=== PATIENT | female | born 1955 | race Caucasian/White ===

== ENCOUNTER 2018-08-04 16:33 | Emergency (ER) | payer BC ==
[~2018-08-04] VITALS: Ht 170.2 cm; Wt 68.0 kg
[2018-08-04] MEDS: NEOMYCIN-BACITRACIN-POLYM UNITDOSE PKG TOP OINT TOP ONE ×2 (18:31→18:53)
[2018-08-04 18:36] LABS: Urine WBC None Seen /hpf (0 - 5)
[2018-08-04 19:06] VITALS: BP 122/82
[2018-08-04 19:13] LABS: Urine Bacteria NONE SEEN /hpf (None Seen); Urine Blood Negative /uL (Negative); Urine Mucus FEW (None Seen); Urine Specific Gravity 1.006 (1.001-1.035)
[2018-08-04 19:14] LABS: Basophils # (auto) 0.1 uL; Basophils % (auto) 1.1 % (0.0-2.0); Eosinophils # (auto) 0.1 uL; Eosinophils % (auto) 0.6 % (0.0-7.0); Hematocrit 39.9 % (36.0-46.0); Hemoglobin 13.4 g/dL (12.2-16.2); Lymphocytes # (auto) 2.9 uL; Lymphocytes % (auto) 28.1 % (10.0-50.0); Mean Corpuscular Hemoglobin 31.9 pg (28.0-32.0); Mean Corpuscular Hgb Conc. 33.7 g/dL (32.0-36.0); Mean Corpuscular Volume 94.7 fL (80.0-100.0); Monocytes # (auto) 0.7 uL; Monocytes % (auto) 6.5 % (0.0-12.0); Neutrophils # (auto) 6.6 uL; Neutrophils % (auto) 63.7 % (37.0-80.0); Platelet Count (auto) 244 10^3/uL (140-450); Red Blood Cells 4.21 10^6/uL (4.0-5.20); Red Cell Distribution Width 13.8 % (11.8-14.3); White Blood Cell 10.4 10^3/uL (4.4-10.8)
[2018-08-04 19:31] LABS: Alanine Aminotransferase 21 U/L (13-56); Albumin 3.8 g/dL (3.4-5.0); Anion Gap 5 (5-15); Blood Urea Nitrogen 21 mg/dL (7-18); Carbon Dioxide 27 mmol/L (21-32); Chloride 108 mmol/L (98-107); Glucose 94 mg/dL (74-106); Potassium 3.6 mmol/L (3.5-5.1); Sodium 140 mmol/L (136-145)
[2018-08-04 19:36] LABS: Alkaline Phosphatase 90 U/L (45-117); Aspartate Aminotransferase 16 U/L (15-37); Bilirubin, Total 0.3 mg/dL (0.2-1.0); Creatine Kinase IFCC 266 U/L (26-192); GFR African American 77 mL/min; GFR Non-African American 64 mL/min; Total Protein 7.3 g/dL (6.4-8.2)
[2018-08-04 19:38] LABS: BUN/Creatinine Ratio 22.1
[2018-08-04] MEDS ORDERED: methylPREDNISolone SOD SUCC 125 MG/2 ML VL IV ONE (20:15)
[2018-08-04] MEDS ORDERED: SODIUM CHLORIDE 0.9% 1,000 ML IV ONE (20:15)
== END 2018-08-04 19:55 | disposition home or self-care (01) ==
LOC: ER 16:33
DX: S60.222A Contusion of left hand, initial encounter (principal); S20.212A Contusion of left front wall of thorax, initial encounter; S50.812A Abrasion of left forearm, initial encounter; G89.29 Other chronic pain; Z88.2 Allergy status to sulfonamides; V43.52XA Car driver injured in collision with other type car in traffic accident, initial encounter; Y93.89 Activity, other specified; Y99.8 Other external cause status; Y92.410 Unspecified street and highway as the place of occurrence of the external cause
CPT/HCPCS: 36415; 71250; 72100; 73110; 73130; 74176; 80053; 81001; 81025; 82550; 84484; 85025; 93005